=== PATIENT | female | born 1970 | race Caucasian/White ===

== ENCOUNTER → 2017-02-03 | Outpatient (CLI) | payer BC ==
--- NOTE | 2017-02-03 15:48 | KCIC ---
EXAM: Cervical spine MRI without contrast. HISTORY: Cervical radiculopathy. TECHNIQUE: Multiplanar, multisequence magnetic resonance imaging of the cervical spine was performed without contrast. COMPARISON: None. FINDINGS: There is slight reversal of cervical lordosis. There is slight anterolisthesis of C3 on C4. There is degenerative endplate remodeling at the mid and lower cervical levels. No suspicious osseous lesion is seen. There are a few small hemangiomas. No spinal cord lesion is seen. The posterior fossa and skull base are unremarkable. At C2-C3, there is no stenosis. At C3-C4, there is no stenosis. At C4-C5, there is no stenosis. At C5-C6, there is a shallow posterior central to right paracentral disc protrusion and annular tear superimposed on endplate remodeling. There is no stenosis. At C6-C7, there is a tiny right foraminal disc protrusion and annular tear. There is no stenosis. IMPRESSION: 1. Minimal to mild degenerative change of the cervical spine, described above. There is no significant stenosis. 2. Slight reversal cervical lordosis and minimal anterolisthesis of C3 on C4. Electronically signed by: Dominique Cabrera MD (02/03/2017 3:45 PM) [facility] [id number]
== END | disposition home or self-care (01) ==
LOC: KCIC MRI 14:29
PROVIDERS: ATTEND Internal Medicine Rheumatology
DX: M54.12 Radiculopathy, cervical region (principal); M40.292 Other kyphosis, cervical region
CPT/HCPCS: 72141